=== PATIENT | male | born 1955 | race Caucasian/White ===

== ENCOUNTER 2018-06-13 11:40 | Inpatient (IN) | payer MEDICARE, OTHER ==
[2018-06-13 13:00] LABS: ADD MAN DIFF? NO
[2018-06-13 13:05] LABS: WHITE BLOOD COUNT 5.9 10^3/ul (4.8-10.8)
[2018-06-13 13:05] LABS: ABNORMAL IP MESSAGE 1; BASOPHILS % 0.7 % (0.0-2.0); EOSINOPHILS % 0.3 % (0.0-7.0); HEMATOCRIT 33.6 % (42.0-52.0); HEMOGLOBIN 10.8 g/dl (14.0-18.0); LYMPHOCYTES # 0.5 10^3/ul (0.8-2.9); LYMPHOCYTES % 7.9 % (15.0-51.0); MEAN CORPUSCULAR HEMOGLOBIN 29.9 pg (29.0-33.0); MEAN CORPUSCULAR HGB CONC 32.1 g/dl (32.0-37.0); MEAN CORPUSCULAR VOLUME 93.1 fl (82.0-101.0); MEAN PLATELET VOLUME 9.5 fl (7.4-10.4); MONOCYTE # 0.4 10^3/ul (0.3-0.9); MONOCYTES % 5.9 % (0.0-11.0); NEUTROPHILS % 84.9 % (39.0-77.0); PLATELET COUNT 301 10^3/UL (140-415); POSITIVE DIFF @See below; RED BLOOD COUNT 3.61 10^6/ul (4.70-6.10)
[2018-06-13 13:17] LABS: ALANINE AMINOTRANSFERASE 19 IU/L (13-69); ALBUMIN 3.4 g/dl (3.3-4.9); ALKALINE PHOSPHATASE 89 IU/L (42-121); ANION GAP 21 (8-16); ASPARTATE AMINO TRANSFERASE 29 IU/L (15-46); BLOOD UREA NITROGEN 66 mg/dl (7-20); CALCIUM 7.9 mg/dl (8.4-10.2); CARBON DIOXIDE 27 mmol/L (21-31); CHLORIDE 96 mmol/L (97-110); CREATININE 8.96 mg/dl (0.61-1.24); GLUCOSE 117 mg/dl (70-220); LIPASE 89 U/L (23-300); POTASSIUM 5.3 mmol/L (3.5-5.1); SODIUM 139 mmol/L (135-144); TOTAL PROTEIN 7.6 g/dl (6.1-8.1)
[2018-06-13 13:25] LABS: INR 1.88; PARTIAL THROMBOPLASTIN TIME 38.4 Sec (25.0-35.0); PT RATIO 1.7
[2018-06-13 13:29] LABS: TROPONIN-I < 0.012 ng/ml (0.000-0.120)
[2018-06-13 13:43] LABS: B-TYPE NATRIURETIC PEPTIDE 96400 PG/ML (0-125)
[2018-06-13] MEDS: LIDOCAINE 1% (MPF) 5 ML VIAL (14:39)
[2018-06-13] MEDS ORDERED: DOCUSATE SODIUM 100 MG CAP PO (16:00)
[2018-06-13] MEDS ORDERED: ZOLPIDEM 5 MG TAB PO (16:00)
[2018-06-13] MEDS ORDERED: morphine 2 MG INJ IV (16:00)
[2018-06-13] MEDS ORDERED: NACL 0.9% 3 ML SYG IV (16:00)
[2018-06-13] MEDS ORDERED: ONDANSETRON 4 MG INJ IV (16:00)
[2018-06-13] MEDS ORDERED: GLUCAGON 1 MG INJ IM (16:30)
[2018-06-13] MEDS ORDERED: GLUCOSE GEL 15 GRAM TUBE BUCCAL (16:30)
[2018-06-13] MEDS ORDERED: DEXTROSE 50% 50 ML SYRINGE IV ×2 (16:30)
[2018-06-13] MEDS ORDERED: GLUCOSE GEL 15 GRAM TUBE PO ×2 (16:30)
[2018-06-13] MEDS: HYDROCODONE/APAP (5/325) TAB PO (16:57)
[2018-06-13] MEDS: CALCIUM ACETATE 667 MG CAP PO (18:09)
[2018-06-13] MEDS: INSULIN ASPART [NOVOLOG] 3 ML PEN SC ×2 (18:14→21:00)
[2018-06-13] MEDS: ACETAMINOPHEN 325 MG TAB PO (20:55)
[2018-06-13] MEDS: INSULIN GLARGINE [LANTus] (100 UNITS/ML) SYG SC (21:00)
[2018-06-13] MEDS: LOSARTAN 50 MG TAB PO (21:00)
[2018-06-13] MEDS: METOPROLOL 50 MG TAB PO (21:00)
[2018-06-13] MEDS: DOXAZOSIN 4 MG TAB PO (21:00)
[2018-06-13] MEDS: hydrALAzine 20 MG INJ IV (23:30)
[2018-06-14] MEDS: ACCU-CHEK XX (02:00)
[2018-06-14 05:39] LABS: ADD MAN DIFF? NO
[2018-06-14 05:45] LABS: ABNORMAL IP MESSAGE 1; BASOPHILS % 0.6 % (0.0-2.0); EOSINOPHILS % 0.3 % (0.0-7.0); HEMATOCRIT 38.1 % (42.0-52.0); HEMOGLOBIN 12.3 g/dl (14.0-18.0); LYMPHOCYTES # 0.4 10^3/ul (0.8-2.9); LYMPHOCYTES % 5.4 % (15.0-51.0); MEAN CORPUSCULAR HEMOGLOBIN 30.4 pg (29.0-33.0); MEAN CORPUSCULAR HGB CONC 32.3 g/dl (32.0-37.0); MEAN CORPUSCULAR VOLUME 94.1 fl (82.0-101.0); MEAN PLATELET VOLUME 9.6 fl (7.4-10.4); MONOCYTE # 0.4 10^3/ul (0.3-0.9); MONOCYTES % 6.3 % (0.0-11.0); NEUTROPHIL # 5.8 10^3/ul (1.6-7.5); NEUTROPHILS % 87.1 % (39.0-77.0); PLATELET COUNT 324 10^3/UL (140-415); POSITIVE DIFF @See below; RED BLOOD COUNT 4.05 10^6/ul (4.70-6.10)
[2018-06-14 05:45] LABS: WHITE BLOOD COUNT 6.6 10^3/ul (4.8-10.8)
[2018-06-14 06:02] LABS: HEMOGLOBIN A1C 5.5 % (0-5.9)
[2018-06-14 06:20] LABS: ANION GAP 17 (8-16); BLOOD UREA NITROGEN 31 mg/dl (7-20); CALCIUM 8.5 mg/dl (8.4-10.2); CARBON DIOXIDE 32 mmol/L (21-31); CHLORIDE 96 mmol/L (97-110); CREATININE 5.12 mg/dl (0.61-1.24); GLUCOSE 114 mg/dl (70-220); MAGNESIUM 2.5 mg/dl (1.7-2.5); POTASSIUM 4.6 mmol/L (3.5-5.1); SODIUM 140 mmol/L (135-144)
[2018-06-14 06:44] LABS: HEPATITIS B SURFACE ANTIGEN NEGATIVE (NEGATIVE)
[2018-06-14] MEDS: ACETAMINOPHEN 325 MG TAB PO (06:48)
[2018-06-14 07:02] LABS: HEPATITIS B SURFACE ANTIBODY POSITIVE (NEGATIVE)
[2018-06-14] MEDS: CALCIUM ACETATE 667 MG CAP PO (08:00)
[2018-06-14] MEDS: INSULIN ASPART [NOVOLOG] 3 ML PEN SC (08:00)
[2018-06-14] MEDS: LOSARTAN 50 MG TAB PO (08:12)
[2018-06-14] MEDS: METOPROLOL 50 MG TAB PO (08:13)
[2018-06-14] MEDS: FUROSEMIDE 40 MG TAB PO (08:13)
[2018-06-14] MEDS: CHOLECALCIFEROL 1,000 UNIT TAB PO (08:14)
== END 2018-06-14 08:00 | disposition home or self-care (01) | DRG 682 ==
LOC: E/R 11:40 → 6WM 13:51
PROC: 0W9G3ZX Drainage of Peritoneal Cavity, Percutaneous Approach, Diagnostic (ICD-10-PCS; principal; 2018-06-13)
PROC: 5A1D70Z Performance of Urinary Filtration, Intermittent, Less than 6 Hours Per Day (ICD-10-PCS; 2018-06-14)
PROC: 5A1D70Z Performance of Urinary Filtration, Intermittent, Less than 6 Hours Per Day (ICD-10-PCS; 2018-06-14)
DX: I13.11 Hypertensive heart and chronic kidney disease without heart failure, with stage 5 chronic kidney disease, or end stage renal disease (principal); N18.6 End stage renal disease; E11.22 Type 2 diabetes mellitus with diabetic chronic kidney disease; E87.5 Hyperkalemia; E87.70 Fluid overload, unspecified; I16.0 Hypertensive urgency; Z99.2 Dependence on renal dialysis; Z79.4 Long term (current) use of insulin; Z87.891 Personal history of nicotine dependence
CPT/HCPCS: 36415; 71045; 80048; 80053; 82962; 83036; 83690; 83735; 83880; 84484; 85025; 85610; 85730; 86706; 87340; 90935; 93005; 99285-25